=== PATIENT | female | born 1960 | race Caucasian/White ===

== ENCOUNTER 2019-09-25 08:11 | Outpatient (CLI) | payer OTHER ==
[~2019-09-25] VITALS: Ht 139.7 cm; Wt 64.4 kg
[2019-09-25] VITALS (8 sets, daily range): BP systolic 114–152; BP diastolic 60–85
[2019-09-25] MEDS ORDERED: TURM500C7 PO (08:42)
[2019-09-25] MEDS ORDERED: CALC-77 PO (08:42)
[2019-09-25] MEDS ORDERED: CITA10TA4 PO (08:42)
[2019-09-25] MEDS ORDERED: ASPI81TA50 PO (08:42)
[2019-09-25] MEDS ORDERED: MULT1TAB52 PO (08:42)
[2019-09-25] MEDS ORDERED: HYDR12.575 PO (08:42)
[2019-09-25] MEDS ORDERED: CHOL10003 PO (08:42)
[2019-09-25] MEDS ORDERED: CYAN-25 PO (08:42)
[2019-09-25] MEDS ORDERED: potassium PO (08:42)
[2019-09-25] MEDS ORDERED: SIMV20TA3 PO (08:42)
[2019-09-25] MEDS ORDERED: DOCO1CAP2 PO (08:42)
[2019-09-25] MEDS ORDERED: LIDOCAINE WITH 8.4% SOD BICARB 3 ML DISP.SYRIN. ONE (09:02)
[2019-09-25 09:05] LABS: BASO # 0.1 x10^3/uL (0.0-0.2); BASO % 1 % (0-3); EOS # 0.2 x10^3/uL (0.0-0.7); EOS % 2 % (0-3); HEMATOCRIT 42.9 % (36.0-47.0); HEMOGLOBIN 14.6 g/dL (12.0-15.5); LYMPH # 2.2 x10^3/uL (1.0-4.8); LYMPH % 23 % (24-48); MEAN CORPUSCULAR HEMOGLOBIN 31 pg (25-35); MEAN CORPUSCULAR HGB CONC 34 g/dL (31-37); MEAN CORPUSCULAR VOLUME 92 fL (79-100); MONO # 0.8 x10^3/uL (0.0-1.1); MONO % 8 % (0-9); NEUT # 6.4 x10^3/uL (1.8-7.7); NEUT % 67 % (31-73); PLATELET COUNT 268 x10^3/uL (140-400); RED BLOOD COUNT 4.68 x10^6/uL (3.50-5.40); RED CELL DISTRIBUTION WIDTH 14.1 % (11.5-14.5); WHITE BLOOD COUNT 9.6 x10^3/uL (4.0-11.0)
[2019-09-25 09:10] LABS: PROTHROMBIN TIME PATIENT 11.8 SEC (11.7-14.0)
[2019-09-25] MEDS ORDERED: MIDAZOLAM HCL/PF 2 MG/2 ML VIAL. ONE (09:24)
[2019-09-25] MEDS ORDERED: fentaNYL PF VIAL 100 MCG/2 ML VIAL ONE (09:25)
[2019-09-25] MEDS ORDERED: LIDOCAINE WITH 8.4% SOD BICARB 3 ML DISP.SYRIN. IJ ONE (09:45)
[2019-09-25] MEDS ORDERED: fentaNYL PF VIAL 100 MCG/2 ML VIAL IV ONE (09:45)
[2019-09-25] MEDS ORDERED: MIDAZOLAM HCL/PF 2 MG/2 ML VIAL. IV ONE (09:45)
--- NOTE | 2019-09-25 10:49 | NUR ---
pt discharged too home with friend. Discharge instructions reviewed. PIV dcd. Pt tolerated PO
--- NOTE | 2019-09-25 11:25 | RAD ---
CT-guided bone marrow biopsy. 09/25/2019 9:21 AM Indication: LEUKOCYTOSIS Discussion: The risks and benefits of the procedure, including but not limited to, bleeding and infection were discussed patient. Informed consent was obtained. The patient was brought to the CT scanner and placed in the prone position. A timeout procedure was performed. Salesman/Owner CT imaging of the pelvis demonstrated left ilium amenable to bone marrow biopsy. The overlying soft tissues were prepped and draped using maximum sterile barrier technique. 1% lidocaine without epinephrine was administered for local anesthesia. Under intermittent CT guidance, an OncControl needle was advanced into the bone marrow of the left iliac crest. 2 Aspirates and 1 core biopsy samples were obtained. Samples were delivered to pathology was present at the time of procedure. The needle was removed and manual pressure held to achieve hemostasis. No immediate complications were identified. The procedure was performed under conscious sedation including continuous cardiopulmonary monitoring via dedicated sedation nurse. Sedation time: 20 minutes Impression: Successful CT-guided bone marrow biopsy of the left iliac crest . PQRS Compliance Statement: One or more of the following individualized dose reduction techniques were utilized for this examination: 1. Automated exposure control 2. Adjustment of the mA and/or kV according to patient size 3. Use of iterative reconstruction technique
== END 2019-09-25 10:51 | disposition home or self-care (01) ==
LOC: INTRAD 08:11
PROVIDERS: ATTEND Internal Medicine Hematology & Oncology
DX: D72.829 Elevated white blood cell count, unspecified (principal); D75.89 Other specified diseases of blood and blood-forming organs; Z79.899 Other long term (current) drug therapy; Z79.01 Long term (current) use of anticoagulants; Z91.041 Radiographic dye allergy status
CPT/HCPCS: 36415; 38222; 77012; 85025; 85610; 85730; 88184; 88185; 88237; 99152; J2250; J3010